=== PATIENT | male | born 1980 | race Two or more races ===

== ENCOUNTER 2019-06-06 08:31 | Inpatient (IN) | payer OTHER ==
[2019-06-06 08:52] VITALS: BMI 32.1
--- NOTE | 2019-06-06 09:38 | HP ---
CIWA Score Nausea/Vomitin Muscle Tremors: 3 Anxiety: 3 Agitation: 2 Paroxysmal Sweats: No Perspiration Orientation: 0-Oriented Tacttile Disturbances: 1-Very Mild Itch/Numbness Auditory Disturbances: 0-None Visual Disturbances: 0-None Headache: 2-Mild CIWA-Ar Total Score: 13 - Admission Criteria OASAS Guidelines: Admission for Medically Managed Detox: Requires at least one of the followin. CIWA greater than 12 2. Seizures within the past 24 hours 3. Delirium tremens within the past 24 hours 4. Hallucinations within the past 24 hours 5. Acute intervention needed for co occurring medical disorder 6. Acute intervention needed for co occurring psychiatric disorder 7. Severe withdrawal that cannot be handled at a lower level of care (continued vomiting, continued diarrhea, abnormal vital signs) requiring intravenous medication and/or fluids 8. Admitting History and Physical - Admission Chief Complaint: i need help to stop alcohol,coaine,marijuana ,heroin abused,. on subxoxone maintenance History of Present Illness: this 38 years old male with alcohol,cocaine,marijuana,heroin abused,on suboxone need help to stop drinking alcohol denied seizure denied syncope hypercholesteol no med last detox 03/16 bipolar disorder,ptsd,schizoprenia History Source: Patient Limitations to Obtaining History: No Limitations - Past Medical History Cardiovascular: Yes: Hyperlipdemia Psych: Yes: Bipolar, Schizophrenia - Smoking History Smoking history: Current every day smoker Have you smoked in the past 12 months: Yes Aproximately how many cigarettes per day: 20 - Alcohol/Substance Use Hx Alcohol Use: Yes History of Substance Use: reports: Cocaine, Heroin, Marijuana - Social History Usual Living Arrangement: Yes: Other (homeless) Occupation: unemployed History of Recent Travel: No Admission [facility] Chief Complaint: i need help to stop drinking alcohol,cocaine,marijuana,heroin abused on suboxone maintenance denied seizure denied syncope first time to this facility nicotine dependence bipolar disorder,schizophrenia,ptsd plan for rehab after detox fell 2 days ago Allergies/Adverse Reactions: Allergies Allergy/AdvReac Type Severity Reaction Status Date / Time shellfish derived Allergy Hives Verified 06/06/19 08:42 History of Present Illness: this 38 years old male with alcohol,cocaine,marijuana,heroin abused on suboxone maintenance, seeking detox as mentioned in chief complaint homeless i stop showed patient on subxoxone - Ebola screening Have you traveled outside of the country in the last 21 days: No Have you had contact with anyone from an Ebola affected area: No - Review of Systems Constitutional: Loss of Appetite, Night Sweats, Changes in sleep, Unintentional Wgt. Loss EENT: reports: Nose Congestion Respiratory: reports: No Symptoms reported Cardiac: reports: No Symptoms Reported GI: reports: Nausea, Poor Appetite : reports: No Symptoms Reported Musculoskeletal: reports: Back Pain Integumentary: reports: Dryness Neuro: reports: Headache, Tremors Endocrine: reports: No Symptoms Reported Hematology: reports: No Symptoms Reported Psychiatric: reports: No Sypmtoms Reported, Judgement Intact, Mood/Affect Appropiate, Orientated x3, other (schizophrenia,bipolar disorder,) Patient History - Patient Medical History Hx Anemia: No Hx Asthma: No Hx Chronic Obstructive Pulmonary Disease (COPD): No Hx Cancer: No Hx Cardiac Disorders: No Hx Congestive Heart Failure: No Hx Hypertension: No Hx Hypercholesterolemia: Yes (no med) Hx Pacemaker: No HX Cerebrovascular Accident: No Hx Seizures: No Hx Dementia: No Hx Diabetes: No Hx Gastrointestinal Disorders: No Hx Liver Disease: No Hx Genitourinary Disorders: No Hx Sexually Transmitted Disorders: No Hx Renal Disease (ESRD): No Hx Thyroid Disease: No Hx Human Immunodeficiency Virus (HIV): No (05/16 negative) Hx Hepatitis C: No Hx Depression: Yes Hx Suicide Attempt: Yes (hang himself in [facility]) Hx Bipolar Disorder: Yes Hx Schizophrenia: Yes Other Medical History: no suicidal,no homicidal - Patient Surgical History Past Surgical History: No - PPD History Previous Implant?: Yes Documented Results: Negative w/o proof Implanted On Prior R Admission?: No PPD to be Administered?: Yes - Smoking Cessation Smoking history: Current every day smoker Have you smoked in the past 12 months: Yes Aproximately how many cigarettes per day: 20 Hx Chewing Tobacco Use: No Initiated information on smoking cessation: Yes 'Breaking Loose' booklet given: 06/06/19 - Substances abused Heroin Substance route: Inhalation Frequency: Daily Amount used: 10 bags Age of first use: 22 Date of last use: 06/04/19 Cocaine Substance route: Smoking Frequency: Daily Amount used: 2 grams Age of first use: 22 Date of last use: 06/04/19 Alcohol Substance route: Oral Frequency: Daily Amount used: 2 pints of henessy Age of first use: 22 Date of last use: 06/04/19 Marijuana/Hashish Substance route: Smoking Frequency: Daily Amount used: 50$ Age of first use: 13 Date of last use: 06/04/19 Admission Physical Exam [facility] - Vital Signs Vital Signs: Vital Signs - 24 hr 06/06/19 08:42 Temperature 97.2 F L Pulse Rate 58 L Respiratory 18 Rate Blood Pressure 120/69 - Physical General Appearance: Yes: Moderate Distress, Tremorous, Irritable, Sweating, Anxious HEENTM: Yes: Normocephalic, Normal Voice, RICARDO, Pharynx Normal Respiratory: Yes: Lungs Clear, Normal Breath Sounds, No Respiratory Distress Neck: Yes: Within Normal Limits, Supple, Trachea in good position Breast: Yes: Within Normal Limits Cardiology: Yes: Bradycardia Abdominal: Yes: Within Normal Limits, Normal Bowel Sounds, Non Tender, Flat Genitourinary: Yes: Within Normal Limits Back: Yes: Muscle Spasm Musculoskeletal: Yes: Back pain, Muscle Pain Extremities: Yes: Tremors Integumentary: Yes: Dry (abrasion of both knees) Lymphatic: Yes: Within Normal Limits - Diagnostic (1) Alcohol dependence with uncomplicated withdrawal Current Visit: Yes Status: Acute (2) Cocaine dependence Current Visit: Yes Status: Acute (3) Cannabis dependence Current Visit: Yes Status: Acute (4) Heroin abuse Current Visit: Yes Status: Acute (5) Encounter for monitoring Suboxone maintenance therapy Current Visit: Yes Status: Acute (6) Hypercholesterolemia Current Visit: Yes Status: Acute (7) Schizophrenia Current Visit: Yes Status: Acute (8) Bipolar disorder Current Visit: Yes Status: Acute (9) Depression Current Visit: Yes Status: Acute Cleared for Admission [facility] - Detox or Rehab [facility] Level of Care: Medically Managed Detox Regimen/Protocol: Librium Breathalyzer - Breathalyzer Breathalyzer: 0 Urine Drug Screen - Test Device Lot number: [id number] Expiration date: 12/26/20 - Control Is test valid?: Yes - Results Drug screen NEGATIVE: No Urine drug screen results: THC-Marijuana, SISI-Cocaine, MOP-Opiates, BUP-Suboxone Inpatient Rehab Admission - Rehab Decision to Admit Inpatient rehab admission?: No
[2019-06-06] MEDS ORDERED: MENTHOL/PHENOL 1 EACH UD MM PRN (09:56)
[2019-06-06] MEDS ORDERED: chlordiazePOXIDE HCL 25 MG CAPSULE PO PRN (09:56)
[2019-06-06] MEDS ORDERED: METHOCARBAMOL 500 MG TABLET PO PRN (09:56)
[2019-06-06] MEDS ORDERED: hydrOXYzine PAMOATE 25 MG CAPSULE (FP) PO PRN (09:56)
[2019-06-06] MEDS ORDERED: IBUPROFEN 400 MG TABLET (FP) PO PRN (09:56)
[2019-06-06] MEDS ORDERED: MAG HYDROX/AL HYDROX/SIMETH 30 ML UNIT-DOSE CUP PO PRN (09:56)
[2019-06-06] MEDS ORDERED: MAGNESIUM CITRATE 300 ML BOTTLE PO PRN (09:56)
[2019-06-06] MEDS ORDERED: MAGNESIUM HYDROX 2400MG/30ML ORAL SUSPENSION 30 ML CUP PO PRN (09:56)
[2019-06-06] MEDS ORDERED: NICOTINE POLACRILEX 2 MG GUM BUC PRN (09:56)
[2019-06-06] MEDS ORDERED: BISMUTH SUBSALICYLATE 262 MG/15 ML BTL PO PRN (09:56)
[2019-06-06] MEDS ORDERED: ACETAMINOPHEN 325 MG TABLET (FP) PO PRN ×2 (09:56)
[2019-06-06] MEDS: chlordiazePOXIDE HCL 25 MG CAPSULE PO SCH ×3 (10:38→22:18)
[2019-06-06] MEDS: NICOTINE 21 MG/24 HOURS TOPICAL PATCH TD SCH (11:37)
[2019-06-06] MEDS: PRENATAL VITAMINS W/ FOLIC ACID TABLET (FP) PO SCH (11:37)
[2019-06-06] MEDS: BACITRACIN 15 GM TUBE TOPICAL OINTMENT TP SCH ×2 (11:38→22:19)
--- NOTE | 2019-06-06 11:53 | EKG ---
Test Reason : Blood Pressure : / mmHG Vent. Rate : 048 BPM Atrial Rate : 048 BPM P-R Int : 142 ms QRS Dur : 088 ms QT Int : 440 ms P-R-T Axes : 059 083 066 degrees QTc Int : 393 ms SINUS BRADYCARDIA OTHERWISE NORMAL ECG NO PREVIOUS ECGS AVAILABLE Confirmed by MARISELA VIERA MD ([id number]) on 06/06/2019 11:52:48 AM Referred By: Confirmed By:MARISELA VIERA MD
[2019-06-06 14:17] LABS: HEMATOCRIT 39.5 % (35.4-49); HEMOGLOBIN 13.1 GM/dL (11.7-16.9); MCH 29.8 pg (25.7-33.7); MCHC 33.1 g/dl (32.0-35.9); MEAN CELL VOLUME 90.3 fl (80-96); PLATELET COUNT 356 K/MM3 (134-434); RBC 4.38 M/mm3 (4.00-5.60); RDW 15.1 % (11.9-15.9); WHITE BLOOD COUNT 6.9 K/mm3 (4.0-10.0)
[2019-06-06 14:23] LABS: ALBUMIN 3.6 g/dl (3.4-5.0); BILIRUBIN,TOTAL 0.2 mg/dL (0.2-1); BLOOD UREA NITROGEN 13.5 mg/dL (7-18); CREATININE 1.2 mg/dL (0.55-1.3); POTASSIUM 3.7 mmol/L (3.5-5.1); TOT PROT 6.6 g/dl (6.4-8.2)
[2019-06-06] MEDS: BUPRENORPHINE/NALOXONE 4 MG/1 MG FILM PACKET SL SCH (14:37)
[2019-06-06] MEDS: THIAMINE HCL 100 MG TABLET (FP) PO SCH (22:19)
[2019-06-06] MEDS: BUPRENORPHINE/NALOXONE 8 MG/2 MG FILM PACKET SL SCH (22:19)
[2019-06-07] MEDS: chlordiazePOXIDE HCL 25 MG CAPSULE PO SCH ×4 (05:47→22:12)
[2019-06-07] MEDS: NICOTINE 21 MG/24 HOURS TOPICAL PATCH TD SCH (09:50)
[2019-06-07] MEDS: BUPRENORPHINE/NALOXONE 8 MG/2 MG FILM PACKET SL SCH ×2 (09:50→22:14)
[2019-06-07] MEDS: PRENATAL VITAMINS W/ FOLIC ACID TABLET (FP) PO SCH (09:50)
[2019-06-07] MEDS: BACITRACIN 15 GM TUBE TOPICAL OINTMENT TP SCH ×2 (09:52→23:19)
--- NOTE | 2019-06-07 11:35 | PN ---
S CIWA - CIWA Score Nausea/Vomitin-Mild Nausea/No Vomiting Muscle Tremors: 2 Anxiety: 2 Agitation: 2 Paroxysmal Sweats: 2 Orientation: 0-Oriented Tacttile Disturbances: 0-None Auditory Disturbances: 0-None Visual Disturbances: 0-None Headache: 1-Very Mild CIWA-Ar Total Score: 10 BHS Progress Note (SOAP) Subjective: 38 years old male with alcohol, cocaine, marijuana use disorders, on suboxone MAT, admitted 06/06. [facility] for alcohol detox. Feeling fine today, no complaints O: Laboratory Tests 06/06/19 06/06/19 06/06/19 11:00 11:00 11:00 WBC 6.9 RBC 4.38 Hgb 13.1 Hct 39.5 MCV 90.3 MCH 29.8 MCHC 33.1 RDW 15.1 Plt Count 356 MPV 8.0 Sodium 142 Potassium 3.7 Chloride 108 H Carbon Dioxide 28 Anion Gap 6 L BUN 13.5 Creatinine 1.2 Est GFR (CKD-EPI)AfAm 89.62 Est GFR (CKD-EPI)NonAf 77.33 Random Glucose 100 Calcium 9.0 Total Bilirubin 0.2 AST 22 ALT 30 Alkaline Phosphatase 55 Total Protein 6.6 Albumin 3.6 RPR Titer Nonreactive Vital Signs - 24 hr 06/06/19 06/06/19 06/06/19 13:01 18:00 22:48 Temperature 97.7 F 98.2 F 97.5 F L Pulse Rate 51 L 65 55 L Respiratory 18 18 18 Rate Blood Pressure 107/71 102/61 110/63 06/07/19 06/07/19 06/07/19 00:29 03:30 06:03 Temperature 97.5 F L Pulse Rate 54 L Respiratory 18 18 16 Rate Blood Pressure 105/69 06/07/19 09:18 Temperature 97.3 F L Pulse Rate 64 Respiratory 18 Rate Blood Pressure 100/59 L nl labs and VS a/p: continue alcohol detox protocol continue subxone
[2019-06-07] MEDS: BUPRENORPHINE/NALOXONE 4 MG/1 MG FILM PACKET SL SCH (13:48)
--- NOTE | 2019-06-07 18:15 | CONSULT ---
[facility] Psychiatric Consult - Data Date of interview: 06/07/19 Admission source: [facility] Identifying data: First visit to [facility] and admission to [address] [place] [address] for this 38 y/o [place] male from [place] ancestry, self-referred for detoxification treatment. GRACIE issues : alcohol, heroin, phencyclidine, cocaine, cannabis, nicotine. Patient is single, no dependents, homeless, unemployed and supported on welfare. Substance Abuse History: Discussed with patient. Details in current [facility] report as follows : Smoking history: Current every day smoker. Have you smoked in the past 12 months: Yes. Aproximately how many cigarettes per day: 20. Hx Chewing Tobacco Use: No. Initiated information on smoking cessation: Yes. 'Breaking Loose' booklet given: 06/06/19. - Substances abused. Heroin. Substance route: Inhalation. Frequency: Daily. Amount used: 10 bags. Age of first use: 22. Date of last use: 06/04/19. Cocaine. Substance route: Smoking. Frequency: Daily. Amount used: 2 grams. Age of first use: 22. Date of last use: 06/04/19. Alcohol. Substance route: Oral. Frequency: Daily. Amount used: 2 pints of henessy. Age of first use: 22. Date of last use: 06/04/19. * * Marijuana/Hashish. Substance route: Smoking. Frequency: Daily. Amount used : 50$. Age of first use: 13. Date of last use: 06/04/19 Medical History: Medical profile is remarkable for dyslipidemia. Psychiatric History: Patient endorses a history of multiple psychiatric hospitalizations ([facility], [facility]). Diagnosed with Bipolar Disorder and PTSD. Mr Lawler is maintained on a regimen of lexapro + latuda + prazosin + gabapentin (doses are not recalled by patient). He gets his psychiatric OPD care at the [facility]. Patient admits to a history of one suicide attempt via hanging (2008). Physical/Sexual Abuse/Trauma History: Not discussed. Patient declines. Additional Comment: Urine drug screen results: THC-Marijuana, SISI-Cocaine, MOP- Opiates, BUP-Suboxone. Noted. Mental Status Exam - Mental Status Exam Alert and Oriented to: Time, Place, Person Cognitive Function: Good Patient Appearance: Well Groomed (short stature) Mood: Nervous, Withdrawn Affect: Mood Congruent, Constricted Patient Behavior: Fatigued, Cooperative Speech Pattern: Clear Voice Loudness: Normal Thought Process: Goal Oriented Thought Disorder: Bizarre Hallucinations: Denies Suicidal Ideation: Denies Homicidal Ideation: Denies Insight/Judgement: Poor Sleep: Fair Appetite: Good Gait/Station: Normal Psychiatric Findings - Problem List ([place] 1, 2,3) (1) Alcohol dependence with uncomplicated withdrawal Current Visit: Yes Status: Acute (2) Heroin abuse Current Visit: Yes Status: Chronic (3) Cannabis dependence Current Visit: Yes Status: Chronic (4) Cocaine dependence Current Visit: Yes Status: Chronic (5) Bipolar disorder Current Visit: Yes Status: Chronic (6) Substance induced mood disorder Current Visit: Yes Status: Chronic (7) History of posttraumatic stress disorder (PTSD) Current Visit: Yes Status: Chronic (8) Insomnia Current Visit: Yes Status: Chronic - Initial Treatment Plan Initial Treatment Plan: Psychoeducation. Sleep hygiene. Detoxification. AA/NA meetings. Groups. Resumed at patient's request : latuda 40 mg po + lexapro 20 mg po daily. Side effects/benefits are discussed with the patient. He expresses his agreement with this plan of care. Observation.
[2019-06-07] MEDS: THIAMINE HCL 100 MG TABLET (FP) PO SCH (22:12)
[2019-06-08] MEDS: chlordiazePOXIDE HCL 25 MG CAPSULE PO SCH ×4 (05:56→22:22)
[2019-06-08] MEDS: BACITRACIN 15 GM TUBE TOPICAL OINTMENT TP SCH ×2 (10:15→22:33)
[2019-06-08] MEDS: NICOTINE 21 MG/24 HOURS TOPICAL PATCH TD SCH (10:16)
[2019-06-08] MEDS: LURASIDONE HCL 40 MG TABLET PO SCH (10:16)
[2019-06-08] MEDS: PRENATAL VITAMINS W/ FOLIC ACID TABLET (FP) PO SCH (10:16)
[2019-06-08] MEDS: BUPRENORPHINE/NALOXONE 8 MG/2 MG FILM PACKET SL SCH ×2 (10:16→22:22)
[2019-06-08] MEDS: ESCITALOPRAM OXALATE 10 MG TABLET (FP) PO SCH (10:16)
--- NOTE | 2019-06-08 10:55 | PN ---
S CIWA - CIWA Score Nausea/Vomitin-No Nausea/No Vomiting Muscle Tremors: None Anxiety: 3 Agitation: 0-Normal Activity Paroxysmal Sweats: 3 Orientation: 0-Oriented Tacttile Disturbances: 0-None Auditory Disturbances: 0-None Visual Disturbances: 0-None Headache: 2-Mild CIWA-Ar Total Score: 8 BHS Progress Note (SOAP) Subjective: c/o sweats, anxiety, and headache. Objective: 06/08/19 10:54 Vital Signs 06/08/19 06/08/19 06/08/19 03:30 06:43 09:51 Temperature 97.5 F L 96.8 F L Pulse Rate 61 75 Respiratory 18 18 18 Rate Blood Pressure 131/79 106/63 Laboratory Last Values WBC 6.9 K/mm3 (4.0-10.0) 06/06/19 11:00 RBC 4.38 M/mm3 (4.00-5.60) 06/06/19 11:00 Hgb 13.1 GM/dL (11.7-16.9) 06/06/19 11:00 Hct 39.5 % (35.4-49) 06/06/19 11:00 MCV 90.3 fl (80-96) 06/06/19 11:00 MCH 29.8 pg (25.7-33.7) 06/06/19 11:00 MCHC 33.1 g/dl (32.0-35.9) 06/06/19 11:00 RDW 15.1 % (11.9-15.9) 06/06/19 11:00 Plt Count 356 K/MM3 (134-434) 06/06/19 11:00 MPV 8.0 fl (7.5-11.1) 06/06/19 11:00 Sodium 142 mmol/L (136-145) 06/06/19 11:00 Potassium 3.7 mmol/L (3.5-5.1) 06/06/19 11:00 Chloride 108 mmol/L (98-107) H 06/06/19 11:00 Carbon Dioxide 28 mmol/L (21-32) 06/06/19 11:00 Anion Gap 6 MMOL/L (8-16) L 06/06/19 11:00 BUN 13.5 mg/dL (7-18) 06/06/19 11:00 Creatinine 1.2 mg/dL (0.55-1.3) 06/06/19 11:00 Est GFR (CKD-EPI)AfAm 89.62 06/06/19 11:00 Est GFR (CKD-EPI)NonAf 77.33 06/06/19 11:00 Random Glucose 100 mg/dL (74-106) 06/06/19 11:00 Calcium 9.0 mg/dL (8.5-10.1) 06/06/19 11:00 Total Bilirubin 0.2 mg/dL (0.2-1) 06/06/19 11:00 AST 22 U/L (15-37) 06/06/19 11:00 ALT 30 U/L (13-61) 06/06/19 11:00 Alkaline Phosphatase 55 U/L (45-117) 06/06/19 11:00 Total Protein 6.6 g/dl (6.4-8.2) 06/06/19 11:00 Albumin 3.6 g/dl (3.4-5.0) 06/06/19 11:00 RPR Titer Nonreactive (NONREACTIVE) 06/06/19 11:00 Labs noted. Assessment: 06/08/19 10:54 AOX3, in no acute respiratory distress. Full ROM, ambulating in the unit. Withdrawal symptoms. Plan: continue detox.
[2019-06-08] MEDS: BUPRENORPHINE/NALOXONE 4 MG/1 MG FILM PACKET SL SCH (13:24)
[2019-06-08] MEDS: THIAMINE HCL 100 MG TABLET (FP) PO SCH (22:22)
[2019-06-08] MEDS: MELATONIN 5 MG TABLETS PO PRN (22:23)
[2019-06-09] MEDS ORDERED: chlordiazePOXIDE HCL 10 MG CAPSULE PO PRN
[2019-06-09] MEDS: chlordiazePOXIDE HCL 10 MG CAPSULE PO SCH ×4 (05:41→22:10)
[2019-06-09] MEDS: PRENATAL VITAMINS W/ FOLIC ACID TABLET (FP) PO SCH (10:30)
[2019-06-09] MEDS: BACITRACIN 15 GM TUBE TOPICAL OINTMENT TP SCH ×2 (10:31→22:10)
[2019-06-09] MEDS: ESCITALOPRAM OXALATE 10 MG TABLET (FP) PO SCH (10:31)
[2019-06-09] MEDS: NICOTINE 21 MG/24 HOURS TOPICAL PATCH TD SCH (10:31)
[2019-06-09] MEDS: LURASIDONE HCL 40 MG TABLET PO SCH (10:31)
[2019-06-09] MEDS: BUPRENORPHINE/NALOXONE 8 MG/2 MG FILM PACKET SL SCH ×2 (10:31→22:10)
--- NOTE | 2019-06-09 13:47 | PN ---
S CIWA - CIWA Score Nausea/Vomitin-No Nausea/No Vomiting Muscle Tremors: 1-None Visible, but [place] Anxiety: 2 Agitation: 1-Slight > Activity Paroxysmal Sweats: No Perspiration Orientation: 0-Oriented Tacttile Disturbances: 0-None Auditory Disturbances: 0-None Visual Disturbances: 0-None Headache: 0-None Present CIWA-Ar Total Score: 4 BHS Progress Note (SOAP) Subjective: 38 years old male admitted on 06/06/19 for alcohol withdrawal sx management treating with librium detox regimen received suboxone today feeling ok ate breakfast and lunch resting on bed encourage to attend behavior and psychosocial therapies while in detox Objective: 06/09/19 13:57 Vital Signs Temperature 99.3 F 06/09/19 13:34 Pulse Rate 85 06/09/19 13:34 Respiratory Rate 18 06/09/19 13:34 Blood Pressure 108/65 06/09/19 13:34 O2 Sat by Pulse Oximetry (%) Laboratory Last Values WBC 6.9 K/mm3 (4.0-10.0) 06/06/19 11:00 RBC 4.38 M/mm3 (4.00-5.60) 06/06/19 11:00 Hgb 13.1 GM/dL (11.7-16.9) 06/06/19 11:00 Hct 39.5 % (35.4-49) 06/06/19 11:00 MCV 90.3 fl (80-96) 06/06/19 11:00 MCH 29.8 pg (25.7-33.7) 06/06/19 11:00 MCHC 33.1 g/dl (32.0-35.9) 06/06/19 11:00 RDW 15.1 % (11.9-15.9) 06/06/19 11:00 Plt Count 356 K/MM3 (134-434) 06/06/19 11:00 MPV 8.0 fl (7.5-11.1) 06/06/19 11:00 Sodium 142 mmol/L (136-145) 06/06/19 11:00 Potassium 3.7 mmol/L (3.5-5.1) 06/06/19 11:00 Chloride 108 mmol/L (98-107) H 06/06/19 11:00 Carbon Dioxide 28 mmol/L (21-32) 06/06/19 11:00 Anion Gap 6 MMOL/L (8-16) L 06/06/19 11:00 BUN 13.5 mg/dL (7-18) 06/06/19 11:00 Creatinine 1.2 mg/dL (0.55-1.3) 06/06/19 11:00 Est GFR (CKD-EPI)AfAm 89.62 06/06/19 11:00 Est GFR (CKD-EPI)NonAf 77.33 06/06/19 11:00 Random Glucose 100 mg/dL (74-106) 06/06/19 11:00 Calcium 9.0 mg/dL (8.5-10.1) 06/06/19 11:00 Total Bilirubin 0.2 mg/dL (0.2-1) 06/06/19 11:00 AST 22 U/L (15-37) 06/06/19 11:00 ALT 30 U/L (13-61) 06/06/19 11:00 Alkaline Phosphatase 55 U/L (45-117) 06/06/19 11:00 Total Protein 6.6 g/dl (6.4-8.2) 06/06/19 11:00 Albumin 3.6 g/dl (3.4-5.0) 06/06/19 11:00 RPR Titer Nonreactive (NONREACTIVE) 06/06/19 11:00 lab noted Assessment: 06/09/19 13:59 alcohol withdrawal Plan: librium regimen
[2019-06-09] MEDS: BUPRENORPHINE/NALOXONE 4 MG/1 MG FILM PACKET SL SCH (14:50)
[2019-06-09] MEDS: THIAMINE HCL 100 MG TABLET (FP) PO SCH (22:10)
[2019-06-09] MEDS: MELATONIN 5 MG TABLETS PO PRN (22:10)
[2019-06-10] MEDS: chlordiazePOXIDE HCL 10 MG CAPSULE PO SCH ×2 (05:31→16:44)
[2019-06-10] MEDS: LURASIDONE HCL 40 MG TABLET PO SCH (10:24)
[2019-06-10] MEDS: BUPRENORPHINE/NALOXONE 8 MG/2 MG FILM PACKET SL SCH ×2 (10:24→21:40)
[2019-06-10] MEDS: ESCITALOPRAM OXALATE 10 MG TABLET (FP) PO SCH (10:24)
[2019-06-10] MEDS: PRENATAL VITAMINS W/ FOLIC ACID TABLET (FP) PO SCH (10:25)
[2019-06-10] MEDS: NICOTINE 21 MG/24 HOURS TOPICAL PATCH TD SCH (10:26)
[2019-06-10] MEDS: BACITRACIN 15 GM TUBE TOPICAL OINTMENT TP SCH ×2 (10:26→21:43)
--- NOTE | 2019-06-10 10:46 | PN ---
S CIWA - CIWA Score Nausea/Vomitin-No Nausea/No Vomiting Muscle Tremors: 1-None Visible, but [place] Anxiety: 1-Mildly Anxious Agitation: 0-Normal Activity Paroxysmal Sweats: No Perspiration Orientation: 0-Oriented Tacttile Disturbances: 0-None Auditory Disturbances: 0-None Visual Disturbances: 0-None Headache: 0-None Present CIWA-Ar Total Score: 2 BHS Progress Note (SOAP) Subjective: 38 years old male admitted on 06/06/19 for alcohol withdrawal sx management treating with librium detox regimen feeling better today discuss aftercare with staff patient is in suboxone program and prefers to go to [facility] for chemical dependent rehab Objective: 06/10/19 10:47 Vital Signs Temperature 97.0 F L 06/10/19 09:19 Pulse Rate 62 06/10/19 09:19 Respiratory Rate 18 06/10/19 09:19 Blood Pressure 104/66 06/10/19 09:19 O2 Sat by Pulse Oximetry (%) Laboratory Last Values WBC 6.9 K/mm3 (4.0-10.0) 06/06/19 11:00 RBC 4.38 M/mm3 (4.00-5.60) 06/06/19 11:00 Hgb 13.1 GM/dL (11.7-16.9) 06/06/19 11:00 Hct 39.5 % (35.4-49) 06/06/19 11:00 MCV 90.3 fl (80-96) 06/06/19 11:00 MCH 29.8 pg (25.7-33.7) 06/06/19 11:00 MCHC 33.1 g/dl (32.0-35.9) 06/06/19 11:00 RDW 15.1 % (11.9-15.9) 06/06/19 11:00 Plt Count 356 K/MM3 (134-434) 06/06/19 11:00 MPV 8.0 fl (7.5-11.1) 06/06/19 11:00 Sodium 142 mmol/L (136-145) 06/06/19 11:00 Potassium 3.7 mmol/L (3.5-5.1) 06/06/19 11:00 Chloride 108 mmol/L (98-107) H 06/06/19 11:00 Carbon Dioxide 28 mmol/L (21-32) 06/06/19 11:00 Anion Gap 6 MMOL/L (8-16) L 06/06/19 11:00 BUN 13.5 mg/dL (7-18) 06/06/19 11:00 Creatinine 1.2 mg/dL (0.55-1.3) 06/06/19 11:00 Est GFR (CKD-EPI)AfAm 89.62 06/06/19 11:00 Est GFR (CKD-EPI)NonAf 77.33 06/06/19 11:00 Random Glucose 100 mg/dL (74-106) 06/06/19 11:00 Calcium 9.0 mg/dL (8.5-10.1) 06/06/19 11:00 Total Bilirubin 0.2 mg/dL (0.2-1) 06/06/19 11:00 AST 22 U/L (15-37) 06/06/19 11:00 ALT 30 U/L (13-61) 06/06/19 11:00 Alkaline Phosphatase 55 U/L (45-117) 06/06/19 11:00 Total Protein 6.6 g/dl (6.4-8.2) 06/06/19 11:00 Albumin 3.6 g/dl (3.4-5.0) 06/06/19 11:00 RPR Titer Nonreactive (NONREACTIVE) 06/06/19 11:00 lab noted Assessment: 06/10/19 10:48 alcohol withdrawal Plan: librium regimen
[2019-06-10] MEDS: BUPRENORPHINE/NALOXONE 4 MG/1 MG FILM PACKET SL SCH (13:02)
[2019-06-10] MEDS ORDERED: GABAPENTIN 100 MG CAPSULE (FP) PO PRN (19:49)
[2019-06-10] MEDS: THIAMINE HCL 100 MG TABLET (FP) PO SCH (21:40)
[2019-06-10] MEDS: MELATONIN 5 MG TABLETS PO PRN (21:43)
[2019-06-11] MEDS ORDERED: chlordiazePOXIDE HCL 10 MG CAPSULE PO ONE (05:00)
[2019-06-11 09:07] VITALS: BP 110/71; PULSE 62; TEMP 96.7
[2019-06-11] MEDS: PRENATAL VITAMINS W/ FOLIC ACID TABLET (FP) PO SCH (10:07)
[2019-06-11] MEDS: LURASIDONE HCL 40 MG TABLET PO SCH (10:07)
[2019-06-11] MEDS: ESCITALOPRAM OXALATE 10 MG TABLET (FP) PO SCH (10:07)
[2019-06-11] MEDS: BACITRACIN 15 GM TUBE TOPICAL OINTMENT TP SCH (10:07)
[2019-06-11] MEDS: BUPRENORPHINE/NALOXONE 8 MG/2 MG FILM PACKET SL SCH (10:07)
[2019-06-11] MEDS: NICOTINE 21 MG/24 HOURS TOPICAL PATCH TD SCH (10:10)
--- NOTE | 2019-06-11 11:25 | DS ---
[facility] Detox Discharge Summary Admission Date: 06/06/19 Discharge Date: 06/11/19 - History Present History: Alcohol Dependence Additional Comments: 38 years old male admitted on 06/06/19 for alcohol withdrawal sx management treated with librium detox regimen patient completed librium detox regimen and tolerated well alert oriented x 3 respiratory clear lungs bilaterally on auscultation extremities full range of motion skin warm and dry - Physical Exam Results Vital Signs: Vital Signs Temperature 96.7 F L 06/11/19 09:06 Pulse Rate 62 06/11/19 09:06 Respiratory Rate 18 06/11/19 09:06 Blood Pressure 110/71 06/11/19 09:06 O2 Sat by Pulse Oximetry (%) Pertinent Admission Physical Exam Findings: alcohol withdrawal Laboratory Last Values WBC 6.9 K/mm3 (4.0-10.0) 06/06/19 11:00 RBC 4.38 M/mm3 (4.00-5.60) 06/06/19 11:00 Hgb 13.1 GM/dL (11.7-16.9) 06/06/19 11:00 Hct 39.5 % (35.4-49) 06/06/19 11:00 MCV 90.3 fl (80-96) 06/06/19 11:00 MCH 29.8 pg (25.7-33.7) 06/06/19 11:00 MCHC 33.1 g/dl (32.0-35.9) 06/06/19 11:00 RDW 15.1 % (11.9-15.9) 06/06/19 11:00 Plt Count 356 K/MM3 (134-434) 06/06/19 11:00 MPV 8.0 fl (7.5-11.1) 06/06/19 11:00 Sodium 142 mmol/L (136-145) 06/06/19 11:00 Potassium 3.7 mmol/L (3.5-5.1) 06/06/19 11:00 Chloride 108 mmol/L (98-107) H 06/06/19 11:00 Carbon Dioxide 28 mmol/L (21-32) 06/06/19 11:00 Anion Gap 6 MMOL/L (8-16) L 06/06/19 11:00 BUN 13.5 mg/dL (7-18) 06/06/19 11:00 Creatinine 1.2 mg/dL (0.55-1.3) 06/06/19 11:00 Est GFR (CKD-EPI)AfAm 89.62 06/06/19 11:00 Est GFR (CKD-EPI)NonAf 77.33 06/06/19 11:00 Random Glucose 100 mg/dL (74-106) 06/06/19 11:00 Calcium 9.0 mg/dL (8.5-10.1) 06/06/19 11:00 Total Bilirubin 0.2 mg/dL (0.2-1) 06/06/19 11:00 AST 22 U/L (15-37) 06/06/19 11:00 ALT 30 U/L (13-61) 06/06/19 11:00 Alkaline Phosphatase 55 U/L (45-117) 06/06/19 11:00 Total Protein 6.6 g/dl (6.4-8.2) 06/06/19 11:00 Albumin 3.6 g/dl (3.4-5.0) 06/06/19 11:00 RPR Titer Nonreactive (NONREACTIVE) 06/06/19 11:00 lab noted - Treatment Hospital Course: Detox Protocol Followed, Detoxed Safely, Responded well, Discharged Condition Good, Rehab Referral Accepted Patient has Accepted a [facility] Referral [facility]: [facility] - Medication Discharge Medications: Ambulatory Orders Escitalopram Oxalate [Lexapro -] 20 mg PO DAILY 06/05/19 Gabapentin [Neurontin -] 800 mg PO Q8H 06/05/19 Lurasidone HCl [Latuda] 40 mg PO DAILY 06/05/19 Prazosin HCl [Minipress] 5 mg PO HS 06/05/19 Buprenorphine HCl/Naloxone HCl [Suboxone 4 mg-1 mg Sl Film] 1 each SL DAILY 02/15 Buprenorphine/Naloxone [Suboxone 8Mg/2Mg Sl Film -] 1 each SL BID 06/06/19 - Diagnosis (1) Alcohol dependence with uncomplicated withdrawal Current Visit: Yes Status: Acute (2) Encounter for monitoring Suboxone maintenance therapy Current Visit: Yes Status: Chronic (3) Hypercholesterolemia Current Visit: Yes Status: Chronic (4) Substance induced mood disorder Current Visit: Yes Status: Suspected - AMA Did Patient Leave Against Medical Advice: No CIWA Score - CIWA Score Nausea/Vomitin-No Nausea/No Vomiting Muscle Tremors: 1-None Visible, but [place] Anxiety: 0-No Anxiety, at Ease Agitation: 0-Normal Activity Paroxysmal Sweats: No Perspiration Orientation: 0-Oriented Tacttile Disturbances: 0-None Auditory Disturbances: 0-None Visual Disturbances: 0-None Headache: 0-None Present CIWA-Ar Total Score: 1
== END 2019-06-11 11:49 | disposition other institution (70) | DRG 773 ==
LOC: YASAS 08:31 → Y3N 10:02
PROVIDERS: ADMIT Allergy & Immunology; ATTEND Allergy & Immunology
PROC: HZ2ZZZZ Detoxification Services for Substance Abuse Treatment (ICD-10-PCS; principal; 2019-06-06)
DX: F10.230 Alcohol dependence with withdrawal, uncomplicated (principal); F11.20 Opioid dependence, uncomplicated; F14.20 Cocaine dependence, uncomplicated; F12.20 Cannabis dependence, uncomplicated; F17.210 Nicotine dependence, cigarettes, uncomplicated; F31.9 Bipolar disorder, unspecified; F19.24 Other psychoactive substance dependence with psychoactive substance-induced mood disorder; E78.5 Hyperlipidemia, unspecified; G47.00 Insomnia, unspecified; R00.1 Bradycardia, unspecified; Z91.013 Allergy to seafood; Z91.5 Personal history of self-harm; Z59.0 Homelessness
CPT/HCPCS: 36415; 80053; 85027; 86593; 93005; 93010

== ENCOUNTER 2019-06-11 11:08 | Inpatient (IN) | payer OTHER ==
[2019-06-11] MEDS ORDERED: MAG HYDROX/AL HYDROX/SIMETH 30 ML UNIT-DOSE CUP PO PRN (11:29)
[2019-06-11] MEDS ORDERED: IBUPROFEN 400 MG TABLET (FP) PO PRN (11:29)
[2019-06-11] MEDS ORDERED: MENTHOL/PHENOL 1 EACH UD MM PRN (11:29)
[2019-06-11] MEDS ORDERED: MAGNESIUM CITRATE 300 ML BOTTLE PO PRN (11:29)
[2019-06-11] MEDS ORDERED: ACETAMINOPHEN 325 MG TABLET (FP) PO PRN (11:29)
[2019-06-11] MEDS ORDERED: NICOTINE POLACRILEX 2 MG GUM BUC PRN (11:29)
[2019-06-11] MEDS ORDERED: LOPERAMIDE HCL 2 MG CAPSULE PO PRN (11:29)
[2019-06-11] MEDS ORDERED: MAGNESIUM HYDROX 2400MG/30ML ORAL SUSPENSION 30 ML CUP PO PRN (11:29)
[2019-06-11] MEDS ORDERED: guaiFENesin 200 MG/10 ML 10 ML UNIT-DOSE CUPS PO PRN (11:29)
--- NOTE | 2019-06-11 11:29 | HP ---
[facility] Rehab Assess/Revision - Admission History Admitted to Rehab from: [facility] Date of Admission to Rehab: 06/11/19 - Findings Detox History & Physical reviewed: Yes Concur with findings: Yes Comments/Additional Findings: transferred from detox to rehab admission as per protocol Inpatient Rehab Admission - Rehab Decision to Admit Inpatient rehab admission?: Yes - Initial Determination Are CD services needed?: Yes Free of communicable disease: Yes Not in need of hospitalization: Yes - Rehab Admission Criteria Previous failed treatment: Yes Poor recovery environment: Yes Comorbidities: Yes Lacks judgement: Yes Patient is meeting Inpatient Rehab admission criteria:: Yes
[2019-06-11] MEDS ORDERED: GABAPENTIN 100 MG CAPSULE PO PRN (11:35)
--- NOTE | 2019-06-11 14:02 | PN ---
[facility] Progress Note Note: Pt admitted to rehab from [facility]. 38 years old male admitted on 06/06/19 for alcohol withdrawal sx management treated with librium detox regimen. Pt is also on Suboxone for OUD. Pt states he is doing fine at the present moment. Vital Signs - 24 hr 06/11/19 12:27 Temperature 98.2 F Pulse Rate 58 L Respiratory 18 Rate Blood Pressure 128/73 labs WNL a/p: OUD/AUD- day #1 in rehab. Pt on suboxone. Needs to connect with outpt provider for continuation of this treatment.
[2019-06-11] MEDS: BACITRACIN 15 GM TUBE TOPICAL OINTMENT TP SCH ×2 (14:45→21:31)
[2019-06-11] MEDS: BUPRENORPHINE/NALOXONE 4 MG/1 MG FILM PACKET SL SCH (14:45)
--- NOTE | 2019-06-11 17:30 | CONSULT ---
[facility] Psychiatric Consult - Data Date of interview: 06/11/19 Admission source: Transfer from [address] [place] [address]. Identifying data: Transfer to [address] for this 38 y/o [place] male from [place] ancestry, who completed detoxification treatment at [address] [place] [address] and wished to pursue rehabilitation for his GRACIE issues (alcohol, heroin, phencyclidine, cocaine, cannabis, nicotine) co-morbid with bipolar disorder + PTSD. Patient is single, no dependents, homeless, unemployed and supported on welfare. Substance Abuse History: Re-discussed with patient in this session. Refer to current [facility] report as follows (for details) : Smoking history: Current every day smoker. Have you smoked in the past 12 months: Yes. Aproximately how many cigarettes per day: 20. Hx Chewing Tobacco Use: No. Initiated information on smoking cessation: Yes. 'Breaking Loose' booklet given: 06/06/19. - Substances abused. Heroin. Substance route: Inhalation. Frequency: Daily. Amount used: 10 bags. Age of first use: 22. Date of last use: 06/04/19. Cocaine. Substance route: Smoking. Frequency: Daily. Amount used: 2 grams. Age of first use: 22. Date of last use: 06/04/19. Alcohol. Substance route : Oral. Frequency: Daily. Amount used: 2 pints of henessy. Age of first use: 22. Date of last use: 06/04/19. Marijuana/Hashish. Substance route: Smoking. Frequency: Daily. Amount used: 50$. Age of first use: 13. Date of last use: 06/04/19 Medical History: Medical profile is remarkable for dyslipidemia. Psychiatric History: No changes in psychiatric history since encounter with this policy writer at [facility] on 06/07/19. Same as follows : history of multiple psychiatric hospitalizations ([facility], [facility]). Diagnosed with Bipolar Disorder and PTSD. Mr Lawler is maintained on a regimen of lexapro + latuda + prazosin + gabapentin (doses are not recalled by patient). He gets his psychiatric OPD care at the [facility]. Patient admits to a history of one suicide attempt via hanging (2008). Physical/Sexual Abuse/Trauma History: Not discussed in this session. Patient declines. Additional Comment: Urine drug screen results: THC-Marijuana, SISI-Cocaine, MOP- Opiates, BUP-Suboxone. Noted. Mental Status Exam - Mental Status Exam Alert and Oriented to: Time, Place, Person Cognitive Function: Good Patient Appearance: Well Groomed Mood: Anxious (mildly anxious), Hopeful Affect: Appropriate, Normal Range Patient Behavior: Appropriate, Cooperative Speech Pattern: Clear, Appropriate Voice Loudness: Normal Thought Process: Goal Oriented Thought Disorder: Not Present Hallucinations: Denies Suicidal Ideation: Denies Homicidal Ideation: Denies Insight/Judgement: Fair Sleep: Well Appetite: Good Gait/Station: Normal Psychiatric Findings - Problem List ([place] 1, 2,3) (1) Alcohol use disorder Current Visit: Yes Status: Chronic (2) Heroin abuse Current Visit: Yes Status: Chronic (3) Cannabis dependence Current Visit: Yes Status: Chronic (4) Cocaine dependence Current Visit: Yes Status: Chronic (5) History of posttraumatic stress disorder (PTSD) Current Visit: Yes Status: Chronic (6) Bipolar disorder Current Visit: Yes Status: Chronic (7) Insomnia Current Visit: Yes Status: Chronic - Initial Treatment Plan Initial Treatment Plan: Psychoeducation. Sleep hygiene. Support. Gabapentin is raised to 200 mg po tid (at patient's request ; he states that he used to be prescribed 800 mg/tid by his OPD psychiatrist). Lurazidone and escitalopram are also resumed (continuity of care). Side effects/benefits of these formulations are re-discussed with the patient. Informed consent is obtained from patient ( verbal). Support. AA/NA meetings. Groups. Observation.
[2019-06-11] MEDS: GABAPENTIN 100 MG CAPSULE PO SCH (21:29)
[2019-06-11] MEDS: THIAMINE HCL 100 MG TABLET (FP) PO SCH (21:29)
[2019-06-11] MEDS: MELATONIN 5 MG TABLETS PO PRN (21:30)
[2019-06-11] MEDS: BUPRENORPHINE/NALOXONE 8 MG/2 MG FILM PACKET SL SCH (21:30)
[2019-06-12] MEDS: GABAPENTIN 100 MG CAPSULE PO SCH ×3 (06:04→21:10)
[2019-06-12] MEDS ORDERED: ESCITALOPRAM OXALATE 10 MG TABLET ONE (09:04)
[2019-06-12] MEDS: LURASIDONE HCL 40 MG TABLET PO SCH (10:07)
[2019-06-12] MEDS: PRENATAL VITAMINS W/ FOLIC ACID TABLET (FP) PO SCH (10:07)
[2019-06-12] MEDS: ESCITALOPRAM OXALATE 20 MG TABLET PO SCH (10:07)
[2019-06-12] MEDS: BACITRACIN 15 GM TUBE TOPICAL OINTMENT TP SCH ×2 (10:08→21:10)
[2019-06-12] MEDS: NICOTINE 21 MG/24 HOURS TOPICAL PATCH TD SCH (10:08)
[2019-06-12] MEDS: BUPRENORPHINE/NALOXONE 8 MG/2 MG FILM PACKET SL SCH ×2 (10:09→21:12)
[2019-06-12] MEDS: BUPRENORPHINE/NALOXONE 4 MG/1 MG FILM PACKET SL SCH (14:10)
[2019-06-12] MEDS: hydrOXYzine PAMOATE 25 MG CAPSULE (FP) PO PRN (17:43)
[2019-06-12] MEDS: THIAMINE HCL 100 MG TABLET (FP) PO SCH (21:10)
[2019-06-12] MEDS: MELATONIN 5 MG TABLETS PO PRN (21:10)
[2019-06-13] MEDS: GABAPENTIN 100 MG CAPSULE PO SCH ×3 (06:08→21:24)
[2019-06-13] MEDS: ESCITALOPRAM OXALATE 20 MG TABLET PO SCH (10:14)
[2019-06-13] MEDS: BACITRACIN 15 GM TUBE TOPICAL OINTMENT TP SCH ×2 (10:14→21:25)
[2019-06-13] MEDS: BUPRENORPHINE/NALOXONE 8 MG/2 MG FILM PACKET SL SCH ×2 (10:14→21:25)
[2019-06-13] MEDS: LURASIDONE HCL 40 MG TABLET PO SCH (10:15)
[2019-06-13] MEDS: PRENATAL VITAMINS W/ FOLIC ACID TABLET (FP) PO SCH (10:15)
[2019-06-13] MEDS: NICOTINE 21 MG/24 HOURS TOPICAL PATCH TD SCH (10:15)
[2019-06-13] MEDS: hydrOXYzine PAMOATE 25 MG CAPSULE (FP) PO PRN (10:15)
[2019-06-13] MEDS: BUPRENORPHINE/NALOXONE 4 MG/1 MG FILM PACKET SL SCH (14:52)
[2019-06-13] MEDS: MELATONIN 5 MG TABLETS PO PRN (21:24)
[2019-06-13] MEDS: THIAMINE HCL 100 MG TABLET (FP) PO SCH (21:24)
[2019-06-14] MEDS: GABAPENTIN 100 MG CAPSULE PO SCH ×3 (06:08→21:05)
[2019-06-14] MEDS ORDERED: ESCITALOPRAM OXALATE 10 MG TABLET ONE (09:01)
[2019-06-14] MEDS: ESCITALOPRAM OXALATE 20 MG TABLET PO SCH (10:00)
[2019-06-14] MEDS: LURASIDONE HCL 40 MG TABLET PO SCH (10:00)
[2019-06-14] MEDS: PRENATAL VITAMINS W/ FOLIC ACID TABLET (FP) PO SCH (10:00)
[2019-06-14] MEDS: BUPRENORPHINE/NALOXONE 8 MG/2 MG FILM PACKET SL SCH ×2 (10:01→21:06)
[2019-06-14] MEDS: NICOTINE 21 MG/24 HOURS TOPICAL PATCH TD SCH (10:02)
[2019-06-14] MEDS: BACITRACIN 15 GM TUBE TOPICAL OINTMENT TP SCH ×2 (10:02→21:06)
[2019-06-14] MEDS: BUPRENORPHINE/NALOXONE 4 MG/1 MG FILM PACKET SL SCH (14:07)
[2019-06-14] MEDS: THIAMINE HCL 100 MG TABLET (FP) PO SCH (21:05)
[2019-06-14] MEDS: MELATONIN 5 MG TABLETS PO PRN (21:05)
[2019-06-15] MEDS: GABAPENTIN 100 MG CAPSULE PO SCH ×3 (05:54→21:05)
[2019-06-15] MEDS ORDERED: ESCITALOPRAM OXALATE 10 MG TABLET ONE (08:49)
[2019-06-15] MEDS: PRENATAL VITAMINS W/ FOLIC ACID TABLET (FP) PO SCH (10:33)
[2019-06-15] MEDS: ESCITALOPRAM OXALATE 20 MG TABLET PO SCH (10:34)
[2019-06-15] MEDS: BACITRACIN 15 GM TUBE TOPICAL OINTMENT TP SCH ×2 (10:34→21:04)
[2019-06-15] MEDS: NICOTINE 21 MG/24 HOURS TOPICAL PATCH TD SCH (10:34)
[2019-06-15] MEDS: LURASIDONE HCL 40 MG TABLET PO SCH (10:34)
[2019-06-15] MEDS: BUPRENORPHINE/NALOXONE 8 MG/2 MG FILM PACKET SL SCH ×2 (10:36→21:05)
[2019-06-15] MEDS: BUPRENORPHINE/NALOXONE 4 MG/1 MG FILM PACKET SL SCH (14:51)
[2019-06-15] MEDS: THIAMINE HCL 100 MG TABLET (FP) PO SCH (21:04)
[2019-06-15] MEDS: hydrOXYzine PAMOATE 25 MG CAPSULE (FP) PO PRN (21:54)
[2019-06-16] MEDS: GABAPENTIN 100 MG CAPSULE PO SCH ×3 (06:04→22:35)
[2019-06-16] MEDS ORDERED: ESCITALOPRAM OXALATE 10 MG TABLET ONE (08:48)
[2019-06-16] MEDS: PRENATAL VITAMINS W/ FOLIC ACID TABLET (FP) PO SCH (10:34)
[2019-06-16] MEDS: ESCITALOPRAM OXALATE 20 MG TABLET PO SCH (10:34)
[2019-06-16] MEDS: LURASIDONE HCL 40 MG TABLET PO SCH (10:34)
[2019-06-16] MEDS: BUPRENORPHINE/NALOXONE 8 MG/2 MG FILM PACKET SL SCH ×2 (10:34→22:35)
[2019-06-16] MEDS: NICOTINE 21 MG/24 HOURS TOPICAL PATCH TD SCH (10:36)
[2019-06-16] MEDS: BACITRACIN 15 GM TUBE TOPICAL OINTMENT TP SCH ×2 (10:37→22:35)
[2019-06-16] MEDS: BUPRENORPHINE/NALOXONE 4 MG/1 MG FILM PACKET SL SCH (14:45)
[2019-06-16] MEDS: hydrOXYzine PAMOATE 25 MG CAPSULE (FP) PO PRN (22:35)
[2019-06-16] MEDS: THIAMINE HCL 100 MG TABLET (FP) PO SCH (22:35)
[2019-06-17] MEDS: GABAPENTIN 100 MG CAPSULE PO SCH ×3 (05:59→21:33)
[2019-06-17] MEDS: ESCITALOPRAM OXALATE 20 MG TABLET PO SCH (10:03)
[2019-06-17] MEDS: hydrOXYzine PAMOATE 25 MG CAPSULE (FP) PO PRN (10:03)
[2019-06-17] MEDS: BUPRENORPHINE/NALOXONE 8 MG/2 MG FILM PACKET SL SCH ×2 (10:03→21:34)
[2019-06-17] MEDS: LURASIDONE HCL 40 MG TABLET PO SCH (10:03)
[2019-06-17] MEDS: PRENATAL VITAMINS W/ FOLIC ACID TABLET (FP) PO SCH (10:03)
[2019-06-17] MEDS: NICOTINE 21 MG/24 HOURS TOPICAL PATCH TD SCH (10:05)
[2019-06-17] MEDS: BACITRACIN 15 GM TUBE TOPICAL OINTMENT TP SCH ×2 (10:05→21:34)
[2019-06-17] MEDS: BUPRENORPHINE/NALOXONE 4 MG/1 MG FILM PACKET SL SCH (14:04)
[2019-06-17] MEDS: THIAMINE HCL 100 MG TABLET (FP) PO SCH (21:33)
[2019-06-17] MEDS: MELATONIN 5 MG TABLETS PO PRN (21:33)
[2019-06-18] MEDS: GABAPENTIN 100 MG CAPSULE PO SCH ×3 (06:19→21:06)
[2019-06-18] MEDS: hydrOXYzine PAMOATE 25 MG CAPSULE (FP) PO PRN (10:13)
[2019-06-18] MEDS: PRENATAL VITAMINS W/ FOLIC ACID TABLET (FP) PO SCH (10:13)
[2019-06-18] MEDS: ESCITALOPRAM OXALATE 20 MG TABLET PO SCH (10:13)
[2019-06-18] MEDS: BUPRENORPHINE/NALOXONE 8 MG/2 MG FILM PACKET SL SCH ×2 (10:13→21:08)
[2019-06-18] MEDS: NICOTINE 21 MG/24 HOURS TOPICAL PATCH TD SCH (10:14)
[2019-06-18] MEDS: LURASIDONE HCL 40 MG TABLET PO SCH (10:14)
[2019-06-18] MEDS: BACITRACIN 15 GM TUBE TOPICAL OINTMENT TP SCH ×2 (10:14→21:08)
--- NOTE | 2019-06-18 14:20 | PN ---
[facility] Progress Note Note: Patient was seen by Dr Ramos on 06/11/19 and most his medications were renewed except Prazosin. He requests that medication be ordered. Prazosin 2 mg/hs will ordered since there is no way to verify previous dose
[2019-06-18] MEDS: MELATONIN 5 MG TABLETS PO PRN (21:06)
[2019-06-18] MEDS: THIAMINE HCL 100 MG TABLET (FP) PO SCH (21:06)
[2019-06-18] MEDS: PRAZOSIN HCL 1 MG CAPSULE PO SCH (21:07)
[2019-06-19] MEDS: GABAPENTIN 100 MG CAPSULE PO SCH ×3 (06:01→21:16)
[2019-06-19] MEDS ORDERED: ESCITALOPRAM OXALATE 10 MG TABLET ONE (09:00)
[2019-06-19] MEDS: ESCITALOPRAM OXALATE 20 MG TABLET PO SCH (10:22)
[2019-06-19] MEDS: PRENATAL VITAMINS W/ FOLIC ACID TABLET (FP) PO SCH (10:22)
[2019-06-19] MEDS: BUPRENORPHINE/NALOXONE 8 MG/2 MG FILM PACKET SL SCH ×2 (10:23→21:18)
[2019-06-19] MEDS: LURASIDONE HCL 40 MG TABLET PO SCH (10:23)
[2019-06-19] MEDS: NICOTINE 21 MG/24 HOURS TOPICAL PATCH TD SCH (10:23)
[2019-06-19] MEDS: BACITRACIN 15 GM TUBE TOPICAL OINTMENT TP SCH ×2 (10:25→21:18)
[2019-06-19] MEDS: hydrOXYzine PAMOATE 25 MG CAPSULE (FP) PO PRN (19:43)
[2019-06-19] MEDS: THIAMINE HCL 100 MG TABLET (FP) PO SCH (21:16)
[2019-06-19] MEDS: PRAZOSIN HCL 1 MG CAPSULE PO SCH (21:16)
[2019-06-19] MEDS: MELATONIN 5 MG TABLETS PO PRN (21:17)
[2019-06-20] MEDS: GABAPENTIN 100 MG CAPSULE PO SCH ×3 (05:58→21:09)
[2019-06-20] MEDS ORDERED: ESCITALOPRAM OXALATE 10 MG TABLET ONE (08:59)
[2019-06-20] MEDS: BACITRACIN 15 GM TUBE TOPICAL OINTMENT TP SCH ×2 (10:18→21:39)
[2019-06-20] MEDS: ESCITALOPRAM OXALATE 20 MG TABLET PO SCH (10:18)
[2019-06-20] MEDS: NICOTINE 21 MG/24 HOURS TOPICAL PATCH TD SCH (10:18)
[2019-06-20] MEDS: PRENATAL VITAMINS W/ FOLIC ACID TABLET (FP) PO SCH (10:18)
[2019-06-20] MEDS: LURASIDONE HCL 40 MG TABLET PO SCH (10:18)
[2019-06-20] MEDS: BUPRENORPHINE/NALOXONE 8 MG/2 MG FILM PACKET SL SCH ×2 (10:19→21:09)
[2019-06-20] MEDS: P-EPHED 60MG/TRIPROLIDI 2.5MG TABLET PO PRN (17:11)
[2019-06-20] MEDS: THIAMINE HCL 100 MG TABLET (FP) PO SCH (21:09)
[2019-06-20] MEDS: PRAZOSIN HCL 1 MG CAPSULE PO SCH (21:10)
[2019-06-20] MEDS: hydrOXYzine PAMOATE 25 MG CAPSULE (FP) PO PRN (21:10)
[2019-06-21] MEDS: GABAPENTIN 100 MG CAPSULE PO SCH ×3 (06:02→21:13)
[2019-06-21] MEDS ORDERED: ESCITALOPRAM OXALATE 10 MG TABLET ONE (09:01)
[2019-06-21] MEDS: BACITRACIN 15 GM TUBE TOPICAL OINTMENT TP SCH ×2 (10:18→21:15)
[2019-06-21] MEDS: ESCITALOPRAM OXALATE 20 MG TABLET PO SCH (10:18)
[2019-06-21] MEDS: hydrOXYzine PAMOATE 25 MG CAPSULE (FP) PO PRN ×2 (10:18→19:12)
[2019-06-21] MEDS: BUPRENORPHINE/NALOXONE 8 MG/2 MG FILM PACKET SL SCH ×2 (10:18→21:14)
[2019-06-21] MEDS: PRENATAL VITAMINS W/ FOLIC ACID TABLET (FP) PO SCH (10:18)
[2019-06-21] MEDS: NICOTINE 21 MG/24 HOURS TOPICAL PATCH TD SCH (10:18)
[2019-06-21] MEDS: LURASIDONE HCL 40 MG TABLET PO SCH (10:18)
[2019-06-21] MEDS: MELATONIN 5 MG TABLETS PO PRN (21:13)
[2019-06-21] MEDS: THIAMINE HCL 100 MG TABLET (FP) PO SCH (21:13)
[2019-06-21] MEDS: PRAZOSIN HCL 1 MG CAPSULE PO SCH (21:13)
[2019-06-22] MEDS: GABAPENTIN 100 MG CAPSULE PO SCH ×3 (06:21→21:31)
[2019-06-22] MEDS ORDERED: ESCITALOPRAM OXALATE 10 MG TABLET ONE (08:52)
[2019-06-22] MEDS: LURASIDONE HCL 40 MG TABLET PO SCH (09:23)
[2019-06-22] MEDS: PRENATAL VITAMINS W/ FOLIC ACID TABLET (FP) PO SCH (09:23)
[2019-06-22] MEDS: BUPRENORPHINE/NALOXONE 8 MG/2 MG FILM PACKET SL SCH ×2 (09:23→21:32)
[2019-06-22] MEDS: ESCITALOPRAM OXALATE 20 MG TABLET PO SCH (09:23)
[2019-06-22] MEDS: BACITRACIN 15 GM TUBE TOPICAL OINTMENT TP SCH ×2 (09:23→21:31)
[2019-06-22] MEDS: NICOTINE 21 MG/24 HOURS TOPICAL PATCH TD SCH (09:23)
[2019-06-22] MEDS: P-EPHED 60MG/TRIPROLIDI 2.5MG TABLET PO PRN (09:24)
[2019-06-22] MEDS: MELATONIN 5 MG TABLETS PO PRN (21:31)
[2019-06-22] MEDS: THIAMINE HCL 100 MG TABLET (FP) PO SCH (21:31)
[2019-06-22] MEDS: PRAZOSIN HCL 1 MG CAPSULE PO SCH (21:31)
[2019-06-22] MEDS: hydrOXYzine PAMOATE 25 MG CAPSULE (FP) PO PRN (21:32)
[2019-06-23] MEDS: GABAPENTIN 100 MG CAPSULE PO SCH ×3 (05:53→21:13)
[2019-06-23] MEDS: PRENATAL VITAMINS W/ FOLIC ACID TABLET (FP) PO SCH (09:26)
[2019-06-23] MEDS: ESCITALOPRAM OXALATE 20 MG TABLET PO SCH (09:26)
[2019-06-23] MEDS: BACITRACIN 15 GM TUBE TOPICAL OINTMENT TP SCH ×2 (09:26→21:15)
[2019-06-23] MEDS: NICOTINE 21 MG/24 HOURS TOPICAL PATCH TD SCH (09:26)
[2019-06-23] MEDS: BUPRENORPHINE/NALOXONE 8 MG/2 MG FILM PACKET SL SCH ×2 (09:26→21:14)
[2019-06-23] MEDS: LURASIDONE HCL 40 MG TABLET PO SCH (09:26)
[2019-06-23] MEDS: hydrOXYzine PAMOATE 25 MG CAPSULE (FP) PO PRN (12:46)
[2019-06-23] MEDS: MELATONIN 5 MG TABLETS PO PRN (21:13)
[2019-06-23] MEDS: THIAMINE HCL 100 MG TABLET (FP) PO SCH (21:13)
[2019-06-23] MEDS: PRAZOSIN HCL 1 MG CAPSULE PO SCH (21:13)
[2019-06-24] MEDS: GABAPENTIN 100 MG CAPSULE PO SCH ×3 (05:58→20:59)
[2019-06-24] MEDS ORDERED: ESCITALOPRAM OXALATE 10 MG TABLET ONE (09:01)
[2019-06-24] MEDS: PRENATAL VITAMINS W/ FOLIC ACID TABLET (FP) PO SCH (09:32)
[2019-06-24] MEDS: ESCITALOPRAM OXALATE 20 MG TABLET PO SCH (09:32)
[2019-06-24] MEDS: LURASIDONE HCL 40 MG TABLET PO SCH (09:33)
[2019-06-24] MEDS: BUPRENORPHINE/NALOXONE 8 MG/2 MG FILM PACKET SL SCH ×2 (09:34→21:00)
[2019-06-24] MEDS: BACITRACIN 15 GM TUBE TOPICAL OINTMENT TP SCH ×2 (09:35→21:00)
[2019-06-24] MEDS: NICOTINE 21 MG/24 HOURS TOPICAL PATCH TD SCH (09:35)
[2019-06-24] MEDS: THIAMINE HCL 100 MG TABLET (FP) PO SCH (20:59)
[2019-06-24] MEDS: MELATONIN 5 MG TABLETS PO PRN (21:00)
[2019-06-24] MEDS: PRAZOSIN HCL 1 MG CAPSULE PO SCH (21:01)
[2019-06-25] MEDS: GABAPENTIN 100 MG CAPSULE PO SCH ×2 (06:11→14:25)
[2019-06-25] MEDS ORDERED: ESCITALOPRAM OXALATE 10 MG TABLET ONE (09:16)
[2019-06-25] MEDS: ESCITALOPRAM OXALATE 20 MG TABLET PO SCH (09:39)
[2019-06-25] MEDS: BUPRENORPHINE/NALOXONE 8 MG/2 MG FILM PACKET SL SCH (09:40)
[2019-06-25] MEDS: NICOTINE 21 MG/24 HOURS TOPICAL PATCH TD SCH (09:40)
[2019-06-25] MEDS: LURASIDONE HCL 40 MG TABLET PO SCH (09:40)
[2019-06-25] MEDS: PRENATAL VITAMINS W/ FOLIC ACID TABLET (FP) PO SCH (09:40)
[2019-06-25] MEDS: BACITRACIN 15 GM TUBE TOPICAL OINTMENT TP SCH ×2 (09:41→21:32)
[2019-06-25] MEDS ORDERED: ACETAMINOPHEN 325 MG TABLET (FP) PO PRN (09:58)
--- NOTE | 2019-06-25 10:07 | PN ---
[facility] Progress Note (SOAP) Subjective: patient with back pain, requesting that his gabapentin dose be increased. Objective: 06/25/19 10:04 Vital Signs Period Temp Pulse Resp BP Sys/Alvarenga Pulse Ox Last 24 Hr 98.1 F 67 18-18 117/83 P/E: General: no apparent distress Lungs: clear Heart: s1 s2 Back: spine aligned MSK: full weight bearing, full ROM, steady gait. Assessment: Back pain 06/25/19 10:04 Plan: Advised patient that he was prescribed gabapentin by psych service and that I cannot increase the dose. Offered patient flexeril, lidoderm patch, se-laird,and encouraged to use tylenol of ibuprofen. Patient agreed to flexeril and will take his tylenol. Will continue to monitor.
--- NOTE | 2019-06-25 14:21 | PN ---
[facility] Progress Note Note: Patient requests to see magazine writer regarding Gabapentin dose. He said that prior to current admission he was taken Gabapentin 800 mg/tid and he is currently ordered 200 mg/tid. He want to resume Gabapentin 800 mg/tid.
[2019-06-25] MEDS: CYCLOBENZAPRINE HCL 5 MG TABLET PO SCH ×2 (14:23→21:30)
[2019-06-25] MEDS: THIAMINE HCL 100 MG TABLET (FP) PO SCH (21:30)
[2019-06-25] MEDS: MELATONIN 5 MG TABLETS PO PRN (21:30)
[2019-06-25] MEDS: PRAZOSIN HCL 1 MG CAPSULE PO SCH (21:30)
[2019-06-25] MEDS: GABAPENTIN 400 MG CAPSULE PO SCH (21:32)
[2019-06-25] MEDS ORDERED: BUPRENORPHINE/NALOXONE 8 MG/2 MG FILM PACKET SL ONE (22:00)
[2019-06-26] MEDS: GABAPENTIN 400 MG CAPSULE PO SCH ×3 (05:57→21:10)
[2019-06-26] MEDS: CYCLOBENZAPRINE HCL 5 MG TABLET PO SCH ×3 (05:57→21:10)
[2019-06-26] MEDS ORDERED: ESCITALOPRAM OXALATE 10 MG TABLET ONE (08:46)
[2019-06-26] MEDS: ESCITALOPRAM OXALATE 20 MG TABLET PO SCH (09:42)
[2019-06-26] MEDS: PRENATAL VITAMINS W/ FOLIC ACID TABLET (FP) PO SCH (09:42)
[2019-06-26] MEDS: LURASIDONE HCL 40 MG TABLET PO SCH (09:42)
[2019-06-26] MEDS: NICOTINE 21 MG/24 HOURS TOPICAL PATCH TD SCH (09:43)
[2019-06-26] MEDS: BACITRACIN 15 GM TUBE TOPICAL OINTMENT TP SCH ×2 (09:43→21:11)
[2019-06-26] MEDS ORDERED: BUPRENORPHINE/NALOXONE 8 MG/2 MG FILM PACKET SL ONE (10:56)
--- NOTE | 2019-06-26 13:29 | PN ---
[facility] COWS - Scale Resting Pulse: 0= WA 80 or Below Sweatin=Flushed/Facial Moisture Restless Observation: 0= Sits Still Pupil Size: 0= Normal to Room Light Bone or Joint Aches: 4=Acute Joint/Muscle Pain Runny Nose/ Eye Tearin= Nasal Congestion GI Upset > 30mins: 1= Stomach Cramp Tremor Observation of Outstretched Hands: 2= Slight Tremor Visible Yawning Observation: 0= None Anxiety or Irritability: 1=Feels Anxious/Irritable Goose Flesh Skin: 0=Smooth Skin COWS Score: 11 [facility] Progress Note (SOAP) Subjective: Continues to have symptoms of withdrawal, Also reported that he was taking 20mg of suboxone when in the community. 8mg BID, and 4mg once a day. Confirmed by [facility]-Stop Patient Name: Juan Lawler Date: 1980 Address: [address] [place], [place] [address], [place] [address] Sex: Male Rx Written Rx Dispensed Drug Quantity Days Supply Prescriber Name 04/17/2019 04/17/2019 buprenorphine-naloxone 4-1 mg sl film 7 7 Tyrone Matthew, S 04/17/2019 04/17/2019 buprenorphine-naloxone 8-2 mg sl film 14 7 Tyrone Matthew, S 04/03/2019 04/03/2019 buprenorphine-naloxone 8-2 mg sl film 28 14 Tyrone Matthew, S 04/03/2019 04/03/2019 buprenorphine-naloxone 4-1 mg sl film 14 14 Tyrone Matthew, S 03/20/2019 03/20/2019 buprenorphine-naloxone 4-1 mg sl film 14 14 Tyrone Matthew, S 03/20/2019 03/20/2019 buprenorphine-naloxone 8-2 mg sl film 28 14 Tyrone Matthew, S 02/07/2019 02/07/2019 buprenorphine-naloxone 4-1 mg sl film 21 7 Tyrone Matthew, S Patient Name: Juan Lawler Date: 1980 [facility] [address] [place] [id number] Sex: Male Rx Written Rx Dispensed Drug Quantity Days Supply Prescriber Name 03/06/2019 03/06/2019 buprenorphine-naloxone 4-1 mg sl film 14 14 Leonora Garcia MD 03/06/2019 03/06/2019 buprenorphine-naloxone 8-2 mg sl film 28 14 Leonora Garcia MD 12/26/2018 12/26/2018 buprenorphine-naloxone 8-2 mg sl film 75 30 John Garduno MD 11/22/2018 11/26/2018 buprenorphine-naloxone 8-2 mg sl film 75 30 John Garduno MD 10/24/2018 10/29/2018 buprenorphine-naloxone 8-2 mg sl film 75 30 John Garduno MD 09/24/2018 10/09/2018 buprenorphine-naloxone 8-2 mg sl film 68 27 John Garduno MD 08/29/2018 09/06/2018 buprenorphine-naloxone 8-2 mg sl film 75 30 John Graduno MD 08/03/2018 08/09/2018 buprenorphine-naloxone 8-2 mg sl film 75 30 Pacheco Mojica 07/26/2018 07/26/2018 buprenorphine-naloxone 8-2 mg sl film 35 14 Pacheco Mojica 07/16/2018 07/16/2018 buprenorphine-naloxone 8-2 mg sl film 32 12 Chong Jones MD Patient Name: Juan Lawler Date: 1980 Address: [address] [place] [address] Sex: Male Rx Written Rx Dispensed Drug Quantity Days Supply Prescriber Name 07/03/2018 07/03/2018 suboxone 8 mg-2 mg sl film 30 15 Shira Henry MD 07/03/2018 07/03/2018 suboxone 4 mg-1 mg sl film 14 14 Shira Henry MD Objective: General: no apparent distress HEENTM: PERRLA Neck: supple Lungs: clear Heart: s1 s2 ABD: +BS Neruo CN 2-12 intact 06/26/19 13:32 Vital Signs Period Temp Pulse Resp BP Sys/Alvarenga Pulse Ox Last 24 Hr 97.7 F 78 16-18 110/78 06/26/19 13:33 Assessment: Withdrawal from heroin 06/26/19 13:33 Plan: Increase suboxone to the dosage that he received while in the community: total 20mg/day. Continue to monitor.
[2019-06-26] MEDS: BUPRENORPHINE/NALOXONE 4 MG/1 MG FILM PACKET SL SCH (14:50)
[2019-06-26] MEDS: MELATONIN 5 MG TABLETS PO PRN (21:10)
[2019-06-26] MEDS: THIAMINE HCL 100 MG TABLET (FP) PO SCH (21:10)
[2019-06-26] MEDS: PRAZOSIN HCL 1 MG CAPSULE PO SCH (21:10)
[2019-06-26] MEDS: BUPRENORPHINE/NALOXONE 8 MG/2 MG FILM PACKET SL SCH (21:11)
[2019-06-27] MEDS: CYCLOBENZAPRINE HCL 5 MG TABLET PO SCH ×3 (06:24→21:37)
[2019-06-27] MEDS: GABAPENTIN 400 MG CAPSULE PO SCH ×3 (06:24→21:37)
[2019-06-27] MEDS ORDERED: ESCITALOPRAM OXALATE 10 MG TABLET ONE (09:22)
[2019-06-27] MEDS: PRENATAL VITAMINS W/ FOLIC ACID TABLET (FP) PO SCH (10:03)
[2019-06-27] MEDS: BUPRENORPHINE/NALOXONE 8 MG/2 MG FILM PACKET SL SCH ×2 (10:03→21:38)
[2019-06-27] MEDS: hydrOXYzine PAMOATE 25 MG CAPSULE (FP) PO PRN ×2 (10:04→21:38)
[2019-06-27] MEDS: NICOTINE 21 MG/24 HOURS TOPICAL PATCH TD SCH (10:04)
[2019-06-27] MEDS: BACITRACIN 15 GM TUBE TOPICAL OINTMENT TP SCH ×2 (10:04→21:18)
[2019-06-27] MEDS: ESCITALOPRAM OXALATE 20 MG TABLET PO SCH (10:04)
[2019-06-27] MEDS: LURASIDONE HCL 40 MG TABLET PO SCH (10:04)
[2019-06-27] MEDS: BUPRENORPHINE/NALOXONE 4 MG/1 MG FILM PACKET SL SCH (13:52)
[2019-06-27] MEDS: MELATONIN 5 MG TABLETS PO PRN (21:37)
[2019-06-27] MEDS: THIAMINE HCL 100 MG TABLET (FP) PO SCH (21:37)
[2019-06-27] MEDS: PRAZOSIN HCL 1 MG CAPSULE PO SCH (21:37)
[2019-06-28] MEDS: CYCLOBENZAPRINE HCL 5 MG TABLET PO SCH ×3 (05:59→21:01)
[2019-06-28] MEDS: GABAPENTIN 400 MG CAPSULE PO SCH ×3 (05:59→21:01)
[2019-06-28] MEDS ORDERED: ESCITALOPRAM OXALATE 10 MG TABLET ONE (09:04)
[2019-06-28] MEDS: ESCITALOPRAM OXALATE 20 MG TABLET PO SCH (10:12)
[2019-06-28] MEDS: PRENATAL VITAMINS W/ FOLIC ACID TABLET (FP) PO SCH (10:12)
[2019-06-28] MEDS: LURASIDONE HCL 40 MG TABLET PO SCH (10:12)
[2019-06-28] MEDS: BUPRENORPHINE/NALOXONE 8 MG/2 MG FILM PACKET SL SCH ×2 (10:12→21:03)
[2019-06-28] MEDS: BACITRACIN 15 GM TUBE TOPICAL OINTMENT TP SCH ×2 (10:13→21:03)
[2019-06-28] MEDS: NICOTINE 21 MG/24 HOURS TOPICAL PATCH TD SCH (10:13)
[2019-06-28] MEDS: BUPRENORPHINE/NALOXONE 4 MG/1 MG FILM PACKET SL SCH (14:47)
[2019-06-28] MEDS: PRAZOSIN HCL 1 MG CAPSULE PO SCH (21:01)
[2019-06-28] MEDS: MELATONIN 5 MG TABLETS PO PRN (21:01)
[2019-06-28] MEDS: THIAMINE HCL 100 MG TABLET (FP) PO SCH (21:01)
[2019-06-29] MEDS: GABAPENTIN 400 MG CAPSULE PO SCH ×3 (06:16→21:43)
[2019-06-29] MEDS: CYCLOBENZAPRINE HCL 5 MG TABLET PO SCH ×3 (06:16→21:43)
[2019-06-29] MEDS ORDERED: ESCITALOPRAM OXALATE 10 MG TABLET ONE (08:49)
[2019-06-29] MEDS ORDERED: PT OWN MED DRAWER 7, Y5N ONE ×3 (08:50→21:45)
[2019-06-29] MEDS: BUPRENORPHINE/NALOXONE 8 MG/2 MG FILM PACKET SL SCH ×2 (09:33→21:43)
[2019-06-29] MEDS: ESCITALOPRAM OXALATE 20 MG TABLET PO SCH (09:33)
[2019-06-29] MEDS: PRENATAL VITAMINS W/ FOLIC ACID TABLET (FP) PO SCH (09:33)
[2019-06-29] MEDS: LURASIDONE HCL 40 MG TABLET PO SCH (09:33)
[2019-06-29] MEDS: BACITRACIN 15 GM TUBE TOPICAL OINTMENT TP SCH ×2 (09:34→21:43)
[2019-06-29] MEDS: NICOTINE 21 MG/24 HOURS TOPICAL PATCH TD SCH (09:35)
[2019-06-29] MEDS: BUPRENORPHINE/NALOXONE 4 MG/1 MG FILM PACKET SL SCH (13:52)
[2019-06-29] MEDS: THIAMINE HCL 100 MG TABLET (FP) PO SCH (21:43)
[2019-06-29] MEDS: PRAZOSIN HCL 1 MG CAPSULE PO SCH (21:45)
[2019-06-30] MEDS: GABAPENTIN 400 MG CAPSULE PO SCH ×3 (06:06→21:09)
[2019-06-30] MEDS: CYCLOBENZAPRINE HCL 5 MG TABLET PO SCH ×3 (06:06→21:09)
[2019-06-30] MEDS ORDERED: ESCITALOPRAM OXALATE 10 MG TABLET ONE (08:51)
[2019-06-30] MEDS: BUPRENORPHINE/NALOXONE 8 MG/2 MG FILM PACKET SL SCH ×2 (09:50→21:10)
[2019-06-30] MEDS: PRENATAL VITAMINS W/ FOLIC ACID TABLET (FP) PO SCH (09:50)
[2019-06-30] MEDS: LURASIDONE HCL 40 MG TABLET PO SCH (09:50)
[2019-06-30] MEDS: NICOTINE 21 MG/24 HOURS TOPICAL PATCH TD SCH (09:50)
[2019-06-30] MEDS: ESCITALOPRAM OXALATE 20 MG TABLET PO SCH (09:50)
[2019-06-30] MEDS: BACITRACIN 15 GM TUBE TOPICAL OINTMENT TP SCH ×2 (09:51→21:11)
[2019-06-30] MEDS: BUPRENORPHINE/NALOXONE 4 MG/1 MG FILM PACKET SL SCH (13:56)
[2019-06-30] MEDS: THIAMINE HCL 100 MG TABLET (FP) PO SCH (21:09)
[2019-06-30] MEDS: PRAZOSIN HCL 1 MG CAPSULE PO SCH (21:10)
[2019-07-01] MEDS: GABAPENTIN 400 MG CAPSULE PO SCH ×3 (06:20→21:01)
[2019-07-01] MEDS: CYCLOBENZAPRINE HCL 5 MG TABLET PO SCH ×3 (06:20→21:01)
[2019-07-01] MEDS ORDERED: ESCITALOPRAM OXALATE 10 MG TABLET ONE (09:23)
[2019-07-01] MEDS: BUPRENORPHINE/NALOXONE 8 MG/2 MG FILM PACKET SL SCH ×2 (10:03→21:03)
[2019-07-01] MEDS: BACITRACIN 15 GM TUBE TOPICAL OINTMENT TP SCH ×2 (10:03→21:03)
[2019-07-01] MEDS: ESCITALOPRAM OXALATE 20 MG TABLET PO SCH (10:03)
[2019-07-01] MEDS: NICOTINE 21 MG/24 HOURS TOPICAL PATCH TD SCH (10:03)
[2019-07-01] MEDS: PRENATAL VITAMINS W/ FOLIC ACID TABLET (FP) PO SCH (10:03)
[2019-07-01] MEDS: LURASIDONE HCL 40 MG TABLET PO SCH (10:04)
[2019-07-01] MEDS: BUPRENORPHINE/NALOXONE 4 MG/1 MG FILM PACKET SL SCH (14:00)
[2019-07-01] MEDS: THIAMINE HCL 100 MG TABLET (FP) PO SCH (21:01)
[2019-07-01] MEDS: METHYL SALICYLATE/MENTHOL OINT 30 GM TUBE TP SCH (21:01)
[2019-07-01] MEDS: PRAZOSIN HCL 1 MG CAPSULE PO SCH (21:01)
[2019-07-01] MEDS: MELATONIN 5 MG TABLETS PO PRN (21:02)
[2019-07-02] MEDS: CYCLOBENZAPRINE HCL 5 MG TABLET PO SCH ×3 (05:51→21:05)
[2019-07-02] MEDS: GABAPENTIN 400 MG CAPSULE PO SCH ×3 (05:51→21:05)
[2019-07-02] MEDS ORDERED: ESCITALOPRAM OXALATE 10 MG TABLET ONE (09:45)
[2019-07-02] MEDS: ESCITALOPRAM OXALATE 20 MG TABLET PO SCH (09:46)
[2019-07-02] MEDS: PRENATAL VITAMINS W/ FOLIC ACID TABLET (FP) PO SCH (09:46)
[2019-07-02] MEDS: BUPRENORPHINE/NALOXONE 8 MG/2 MG FILM PACKET SL SCH ×2 (09:46→21:06)
[2019-07-02] MEDS: LURASIDONE HCL 40 MG TABLET PO SCH (09:46)
[2019-07-02] MEDS: NICOTINE 21 MG/24 HOURS TOPICAL PATCH TD SCH (09:46)
[2019-07-02] MEDS ORDERED: PT OWN MED DRAWER 7, Y5N ONE (09:46)
[2019-07-02] MEDS: BACITRACIN 15 GM TUBE TOPICAL OINTMENT TP SCH ×2 (09:47→21:07)
[2019-07-02] MEDS: METHYL SALICYLATE/MENTHOL OINT 30 GM TUBE TP SCH ×2 (09:47→21:07)
[2019-07-02] MEDS: BUPRENORPHINE/NALOXONE 4 MG/1 MG FILM PACKET SL SCH (13:21)
[2019-07-02] MEDS: PRAZOSIN HCL 1 MG CAPSULE PO SCH (21:05)
[2019-07-02] MEDS: THIAMINE HCL 100 MG TABLET (FP) PO SCH (21:05)
[2019-07-02] MEDS: MELATONIN 5 MG TABLETS PO PRN (21:05)
[2019-07-03] MEDS: CYCLOBENZAPRINE HCL 5 MG TABLET PO SCH ×3 (06:11→21:37)
[2019-07-03] MEDS: GABAPENTIN 400 MG CAPSULE PO SCH ×3 (06:11→21:37)
[2019-07-03] MEDS ORDERED: ESCITALOPRAM OXALATE 10 MG TABLET ONE (08:58)
[2019-07-03] MEDS: PRENATAL VITAMINS W/ FOLIC ACID TABLET (FP) PO SCH (09:32)
[2019-07-03] MEDS: NICOTINE 21 MG/24 HOURS TOPICAL PATCH TD SCH (09:32)
[2019-07-03] MEDS: ESCITALOPRAM OXALATE 20 MG TABLET PO SCH (09:32)
[2019-07-03] MEDS: BUPRENORPHINE/NALOXONE 8 MG/2 MG FILM PACKET SL SCH ×2 (09:32→21:38)
[2019-07-03] MEDS: LURASIDONE HCL 40 MG TABLET PO SCH (09:33)
[2019-07-03] MEDS: METHYL SALICYLATE/MENTHOL OINT 30 GM TUBE TP SCH ×2 (09:33→21:40)
[2019-07-03] MEDS: BACITRACIN 15 GM TUBE TOPICAL OINTMENT TP SCH ×2 (09:47→21:39)
[2019-07-03] MEDS: BUPRENORPHINE/NALOXONE 4 MG/1 MG FILM PACKET SL SCH (14:37)
[2019-07-03] MEDS ORDERED: PT OWN MED DRAWER 7, Y5N ONE ×2 (14:38→21:39)
[2019-07-03] MEDS: PRAZOSIN HCL 1 MG CAPSULE PO SCH (21:37)
[2019-07-03] MEDS: THIAMINE HCL 100 MG TABLET (FP) PO SCH (21:37)
[2019-07-03] MEDS: MELATONIN 5 MG TABLETS PO PRN (21:37)
[2019-07-04] MEDS: GABAPENTIN 400 MG CAPSULE PO SCH ×3 (06:31→21:04)
[2019-07-04] MEDS: CYCLOBENZAPRINE HCL 5 MG TABLET PO SCH ×3 (06:31→21:04)
[2019-07-04] MEDS ORDERED: ESCITALOPRAM OXALATE 10 MG TABLET ONE (09:08)
[2019-07-04] MEDS: BUPRENORPHINE/NALOXONE 8 MG/2 MG FILM PACKET SL SCH ×2 (09:38→21:05)
[2019-07-04] MEDS: PRENATAL VITAMINS W/ FOLIC ACID TABLET (FP) PO SCH (09:38)
[2019-07-04] MEDS: ESCITALOPRAM OXALATE 20 MG TABLET PO SCH (09:38)
[2019-07-04] MEDS: LURASIDONE HCL 40 MG TABLET PO SCH (09:39)
[2019-07-04] MEDS: NICOTINE 21 MG/24 HOURS TOPICAL PATCH TD SCH (09:40)
[2019-07-04] MEDS: METHYL SALICYLATE/MENTHOL OINT 30 GM TUBE TP SCH ×2 (09:40→21:06)
[2019-07-04] MEDS: BACITRACIN 15 GM TUBE TOPICAL OINTMENT TP SCH ×2 (09:40→21:03)
[2019-07-04] MEDS: BUPRENORPHINE/NALOXONE 4 MG/1 MG FILM PACKET SL SCH (13:46)
[2019-07-04] MEDS: PRAZOSIN HCL 1 MG CAPSULE PO SCH (21:04)
[2019-07-04] MEDS: THIAMINE HCL 100 MG TABLET (FP) PO SCH (21:05)
[2019-07-04] MEDS ORDERED: PT OWN MED DRAWER 7, Y5N ONE (21:06)
[2019-07-05] MEDS ORDERED: PT OWN MED DRAWER 7, Y5N ONE ×3 (04:08→21:41)
[2019-07-05] MEDS: GABAPENTIN 400 MG CAPSULE PO SCH ×3 (06:19→21:38)
[2019-07-05] MEDS: CYCLOBENZAPRINE HCL 5 MG TABLET PO SCH ×3 (06:19→21:38)
[2019-07-05] MEDS ORDERED: ESCITALOPRAM OXALATE 10 MG TABLET ONE (08:55)
[2019-07-05] MEDS: PRENATAL VITAMINS W/ FOLIC ACID TABLET (FP) PO SCH (09:28)
[2019-07-05] MEDS: METHYL SALICYLATE/MENTHOL OINT 30 GM TUBE TP SCH ×2 (09:28→21:39)
[2019-07-05] MEDS: BUPRENORPHINE/NALOXONE 8 MG/2 MG FILM PACKET SL SCH ×2 (09:28→21:40)
[2019-07-05] MEDS: LURASIDONE HCL 40 MG TABLET PO SCH (09:28)
[2019-07-05] MEDS: ESCITALOPRAM OXALATE 20 MG TABLET PO SCH (09:29)
[2019-07-05] MEDS: NICOTINE 21 MG/24 HOURS TOPICAL PATCH TD SCH (09:29)
[2019-07-05] MEDS: BACITRACIN 15 GM TUBE TOPICAL OINTMENT TP SCH ×2 (09:29→21:41)
[2019-07-05] MEDS: BUPRENORPHINE/NALOXONE 4 MG/1 MG FILM PACKET SL SCH (14:14)
[2019-07-05] MEDS: THIAMINE HCL 100 MG TABLET (FP) PO SCH (21:39)
[2019-07-05] MEDS: MELATONIN 5 MG TABLETS PO PRN (21:40)
[2019-07-05] MEDS: PRAZOSIN HCL 1 MG CAPSULE PO SCH (21:41)
[2019-07-06] MEDS: CYCLOBENZAPRINE HCL 5 MG TABLET PO SCH ×3 (05:59→21:10)
[2019-07-06] MEDS: GABAPENTIN 400 MG CAPSULE PO SCH ×3 (05:59→21:11)
[2019-07-06] MEDS ORDERED: ESCITALOPRAM OXALATE 10 MG TABLET ONE (09:10)
[2019-07-06] MEDS: ESCITALOPRAM OXALATE 20 MG TABLET PO SCH (09:47)
[2019-07-06] MEDS: LURASIDONE HCL 40 MG TABLET PO SCH (09:47)
[2019-07-06] MEDS: BUPRENORPHINE/NALOXONE 8 MG/2 MG FILM PACKET SL SCH ×2 (09:47→21:12)
[2019-07-06] MEDS: NICOTINE 21 MG/24 HOURS TOPICAL PATCH TD SCH (09:48)
[2019-07-06] MEDS: PRENATAL VITAMINS W/ FOLIC ACID TABLET (FP) PO SCH (09:48)
[2019-07-06] MEDS ORDERED: PT OWN MED DRAWER 7, Y5N ONE ×2 (09:49→18:56)
[2019-07-06] MEDS: METHYL SALICYLATE/MENTHOL OINT 30 GM TUBE TP SCH ×2 (09:50→21:13)
[2019-07-06] MEDS: BACITRACIN 15 GM TUBE TOPICAL OINTMENT TP SCH ×2 (09:50→21:13)
[2019-07-06] MEDS: BUPRENORPHINE/NALOXONE 4 MG/1 MG FILM PACKET SL SCH (14:21)
[2019-07-06] MEDS: THIAMINE HCL 100 MG TABLET (FP) PO SCH (21:11)
[2019-07-06] MEDS: PRAZOSIN HCL 1 MG CAPSULE PO SCH (21:11)
[2019-07-06] MEDS: MELATONIN 5 MG TABLETS PO PRN (21:11)
[2019-07-07] MEDS: GABAPENTIN 400 MG CAPSULE PO SCH ×3 (06:30→21:31)
[2019-07-07] MEDS: CYCLOBENZAPRINE HCL 5 MG TABLET PO SCH ×3 (06:31→21:31)
[2019-07-07] MEDS ORDERED: PT OWN MED DRAWER 7, Y5N ONE (08:59)
[2019-07-07] MEDS: ESCITALOPRAM OXALATE 20 MG TABLET PO SCH (10:13)
[2019-07-07] MEDS: NICOTINE 21 MG/24 HOURS TOPICAL PATCH TD SCH (10:13)
[2019-07-07] MEDS: LURASIDONE HCL 40 MG TABLET PO SCH (10:13)
[2019-07-07] MEDS: BACITRACIN 15 GM TUBE TOPICAL OINTMENT TP SCH ×2 (10:13→21:33)
[2019-07-07] MEDS: BUPRENORPHINE/NALOXONE 8 MG/2 MG FILM PACKET SL SCH ×2 (10:13→21:32)
[2019-07-07] MEDS: PRENATAL VITAMINS W/ FOLIC ACID TABLET (FP) PO SCH (10:13)
[2019-07-07] MEDS: METHYL SALICYLATE/MENTHOL OINT 30 GM TUBE TP SCH ×2 (10:20→21:31)
[2019-07-07] MEDS: BUPRENORPHINE/NALOXONE 4 MG/1 MG FILM PACKET SL SCH (13:48)
[2019-07-07] MEDS: PRAZOSIN HCL 1 MG CAPSULE PO SCH (21:31)
[2019-07-07] MEDS: MELATONIN 5 MG TABLETS PO PRN (21:31)
[2019-07-07] MEDS: THIAMINE HCL 100 MG TABLET (FP) PO SCH (21:31)
[2019-07-08] MEDS: GABAPENTIN 400 MG CAPSULE PO SCH ×3 (06:20→21:17)
[2019-07-08] MEDS: CYCLOBENZAPRINE HCL 5 MG TABLET PO SCH ×3 (06:20→21:17)
[2019-07-08] MEDS ORDERED: PT OWN MED DRAWER 7, Y5N ONE ×2 (09:12→19:10)
[2019-07-08] MEDS: LURASIDONE HCL 40 MG TABLET PO SCH (09:33)
[2019-07-08] MEDS: ESCITALOPRAM OXALATE 20 MG TABLET PO SCH (09:34)
[2019-07-08] MEDS: PRENATAL VITAMINS W/ FOLIC ACID TABLET (FP) PO SCH (09:34)
[2019-07-08] MEDS: BACITRACIN 15 GM TUBE TOPICAL OINTMENT TP SCH ×2 (09:35→21:21)
[2019-07-08] MEDS: METHYL SALICYLATE/MENTHOL OINT 30 GM TUBE TP SCH ×2 (09:35→21:21)
[2019-07-08] MEDS: NICOTINE 21 MG/24 HOURS TOPICAL PATCH TD SCH (09:35)
[2019-07-08] MEDS: BUPRENORPHINE/NALOXONE 8 MG/2 MG FILM PACKET SL SCH ×2 (09:36→21:21)
[2019-07-08] MEDS: BUPRENORPHINE/NALOXONE 4 MG/1 MG FILM PACKET SL SCH (13:25)
[2019-07-08] MEDS: THIAMINE HCL 100 MG TABLET (FP) PO SCH (21:17)
[2019-07-08] MEDS: PRAZOSIN HCL 1 MG CAPSULE PO SCH (21:21)
[2019-07-09] MEDS: CYCLOBENZAPRINE HCL 5 MG TABLET PO SCH (06:24)
[2019-07-09] MEDS: GABAPENTIN 400 MG CAPSULE PO SCH (06:24)
[2019-07-09 07:00] VITALS: BP 130/82; PULSE 50; TEMP 97.5
--- NOTE | 2019-07-09 09:05 | DS ---
[facility] Rehab Discharge Summary - [facility] Rehab Discharge Summary Admission Date: 06/11/19 Discharge Date: 07/09/19 - History Present History: Alcohol dependence, Cannabis dependence, Cocaine dependence, Opioid dependence Pertinent Past History: this 38 years old male with alcohol,cocaine,marijuana,heroin abused,on suboxone need help to stop drinking alcohol denied seizure denied syncope hypercholesteol no med last detox 03/16 bipolar disorder,ptsd,schizoprenia - Discharge Physical Exam Vital Signs: Vital Signs Temperature 97.5 F L 07/09/19 06:59 Pulse Rate 50 L 07/09/19 06:59 Respiratory Rate 16 07/09/19 06:59 Blood Pressure 130/82 07/09/19 06:59 O2 Sat by Pulse Oximetry (%) Pertinent Admission Physical Exam Findings: Physical General Appearance: No apparent distress HEENTM: Normocephalic, Respiratory: respirations unlabored Neck: Supple, Trachea in good position Musculoskeletal: full weight bearing, steady gait - Treatment Discharge Condition: Outpatient referral accepted (medically stable for discharge.Will go to [facility] for aftercare) Hospital Course: patient attended groups, had 1:1 with his counselor, was seen by psychiatry. He had not acute medical problems while in rehab. He continued suboxone therapy during rehab. - Medication Discharge Medications: Ambulatory Orders Escitalopram Oxalate [Lexapro -] 20 mg PO DAILY 06/05/19 Gabapentin [Neurontin -] 800 mg PO Q8H 06/05/19 Lurasidone HCl [Latuda] 40 mg PO DAILY 06/05/19 Prazosin HCl [Minipress] 5 mg PO HS 06/05/19 Buprenorphine HCl/Naloxone HCl [Suboxone 4 mg-1 mg Sl Film] 1 each SL DAILY 02/15 Buprenorphine/Naloxone [Suboxone 8Mg/2Mg Sl Film -] 1 each SL BID 06/06/19 Buprenorphine HCl/Naloxone HCl [Suboxone 4 mg/1 mg Film Packet] 1 each SL DAILY@ 1400 #7 film MDD 20MG 07/08/19 Buprenorphine/Naloxone [Suboxone 8Mg/2Mg Sl Film -] 1 each SL BID@1000,2200 #14 film MDD 20mg 07/08/19 - Medication-Assisted Treatment (MAT) Medication-Assisted Treatment (MAT): Yes Medication Prescribed: Buprenorphine MAT Follow-up Referral: [facility] - Discharge Instructions Diet, activity, other medical instructions: Diet: Activity: Other medical instructions: - Diagnosis (1) Alcohol use disorder Current Visit: Yes Status: Chronic (2) Cocaine dependence Current Visit: Yes Status: Chronic (3) Heroin abuse Current Visit: Yes Status: Chronic - Follow-up Referral Minutes to complete discharge: 20 - AMA Did Patient Leave Against Medical Advice: No
[2019-07-09] MEDS ORDERED: ESCITALOPRAM OXALATE 10 MG TABLET ONE (09:06)
[2019-07-09] MEDS: BUPRENORPHINE/NALOXONE 8 MG/2 MG FILM PACKET SL SCH (09:07)
[2019-07-09] MEDS: PRENATAL VITAMINS W/ FOLIC ACID TABLET (FP) PO SCH (09:07)
[2019-07-09] MEDS: LURASIDONE HCL 40 MG TABLET PO SCH (09:07)
[2019-07-09] MEDS: METHYL SALICYLATE/MENTHOL OINT 30 GM TUBE TP SCH (09:08)
[2019-07-09] MEDS: ESCITALOPRAM OXALATE 20 MG TABLET PO SCH (09:08)
[2019-07-09] MEDS: NICOTINE 21 MG/24 HOURS TOPICAL PATCH TD SCH (09:08)
[2019-07-09] MEDS: BACITRACIN 15 GM TUBE TOPICAL OINTMENT TP SCH (09:08)
== END 2019-07-09 09:15 | disposition home or self-care (01) | DRG 772 ==
LOC: YASAS 11:08 → Y3W 11:09
PROVIDERS: ADMIT Neuromusculoskeletal Medicine & OMM; ATTEND Neuromusculoskeletal Medicine & OMM
PROC: HZ42ZZZ Group Counseling for Substance Abuse Treatment, Cognitive-Behavioral (ICD-10-PCS; principal; 2019-06-11)
DX: F10.20 Alcohol dependence, uncomplicated (principal); F11.23 Opioid dependence with withdrawal; F14.20 Cocaine dependence, uncomplicated; F12.20 Cannabis dependence, uncomplicated; F17.210 Nicotine dependence, cigarettes, uncomplicated; F31.9 Bipolar disorder, unspecified; G47.00 Insomnia, unspecified; M54.9 Dorsalgia, unspecified; Z91.013 Allergy to seafood; Z91.5 Personal history of self-harm; Z59.0 Homelessness